=== PATIENT | female | born 1940 | race Caucasian/White ===

== ENCOUNTER 2017-12-23 11:41 | Emergency (ER) | payer OTHER, BC ==
[~2017-12-23] VITALS: Ht 162.6 cm; Wt 50.8 kg
[~2017-12-23 11:41] MED LIST: LISINOPRIL5 MG; VALTREX1000 MG PO; ZOVIRAX15 GM TP
[2017-12-23] MEDS ORDERED: VALTREX1000 MG PO (12:48)
[2017-12-23] MEDS ORDERED: ZOVIRAX5 GM TOP (12:48)
== END 2017-12-23 13:05 | disposition home or self-care (01) ==
LOC: ER 11:41
DX: B00.1 Herpesviral vesicular dermatitis (principal)